=== PATIENT | male | born 1985 | race Hispanic/Latino ===

== ENCOUNTER 2016-07-29 12:35 | Emergency (ER) | payer SELFPAY ==
[2016-07-29 13:22] VITALS: BMI 25.8
[2016-07-29 13:26] VITALS: TEMP 98.3; O2SAT 99
[2016-07-29] MEDS ORDERED: Sodium Chloride 0.9% 500 ML IV STA (13:58)
--- NOTE | 2016-07-29 14:02 | ED PDOC ---
Arrival/HPI - General Chief Complaint: Dizziness/Lightheaded Time Seen by Provider: 07/29/16 13:58 Historian: Patient - History of Present Illness Narrative History of Present Illness (Text): 07/29/16 13:58 A 30 year old male presents to the emergency department complaining of dizziness and near syncope since yesterday. Patient reports feeling faint and experiencing a spinning sensation. He states his symptoms worsened today causing him to come in for further evaluation. Patient denies any fever, chills , nausea, vomiting, abdominal pain, chest pain, shortness of breath, headache or any other complaints. Patient reports he was on diet for 1 year and lost over 100 pounds. PMD: None Time/Duration: Other (Yesterday) Symptom Course: Worsening (Today) Quality: Other Context: Home Associated Symptoms (Text): 07/29/16 15:23 Patient was at his son's birthday green party yesterday and began to feel dizzy and lightheaded and near syncopal. He denies chest pain palpitations or dyspnea. No headache. No focal weakness. No numbness tingling or paresthesias. No difficulty with ADLs. No abdominal pain nausea or vomiting. Patient has lost approximately 100 pounds over the last year while dieting. He has only eaten some oatmeal and coffee since yesterday. Past Medical History - Provider Review Nursing Documentation Reviewed: Yes - Infectious Disease Hx of Infectious Diseases: None - Tetanus Immunization Tetanus Immunization: Unknown - Cardiac Hx Cardiac Disorders: Yes - Pulmonary Hx Asthma: Yes - HEENT Hx HEENT Disorder: No - Renal Hx Renal Disorder: No Hx Kidney Stones: Yes - Gastrointestinal Other/Comment: GALLSTONES - Psychiatric Hx Depression: No Hx Emotional Abuse: No Hx Physical Abuse: No Hx Substance Use: No - Past Surgical History Past Surgical History: No Previous - Anesthesia Hx Anesthesia: No - Suicidal Assessment Feels Threatened In Home Enviroment: No Family/Social History - Physician Review Nursing Documentation Reviewed: Yes Family/Social History: No Known Family HX Smoking Status: Light Smoker < 10 Cigarettes Daily Hx Alcohol Use: Yes Frequency of alcohol use: Socially Hx Substance Use: No Hx Substance Use Treatment: No Allergies/Home Meds Allergies/Adverse Reactions: Allergies No Known Allergies Allergy (Verified 07/29/16 13:22) Home Medications: Home Meds Medication Instructions Recorded Confirmed Loratadine/Pseudoephedrine 1 each PO DAILY 07/29/16 07/29/16 [Claritin-D 24 Hour Tablet] Review of Systems - Physician Review All systems were reviewed & negative as marked: Yes - Review of Systems Constitutional: absent: Fatigue, Fevers, Night Sweats Respiratory: absent: SOB, Wheezing Cardiovascular: Other (Near-syncope). absent: Chest Pain, Palpitations, Syncope Gastrointestinal: absent: Abdominal Pain, Nausea, Vomiting Neurological: Dizziness. absent: Headache, Focal Weakness, Gait Changes, Speech Changes, Facial Droop, Disequilibrium, Seizure Physical Exam Vital Signs Reviewed: Yes Vital Signs Temp Pulse Resp BP Pulse Ox 07/29/16 15:00 86 18 121/71 99 07/29/16 13:25 98.3 F 91 H 17 122/75 99 Temperature: Afebrile Blood Pressure: Normal Pulse: Regular Respiratory Rate: Normal Appearance: Positive for: Well-Appearing, Non-Toxic, Comfortable Pain Distress: None Mental Status: Positive for: Alert and Oriented X 3 - Systems Exam Head: Present: Atraumatic, Normocephalic Pupils: Present: PERRL Extroacular Muscles: Present: EOMI Conjunctiva: Present: Normal Ears: Present: NORMAL TM, Normal Canal. No: Erythema Mouth: Present: Moist Mucous Membranes Pharnyx: No: ERYTHEMA, EXUDATE, TONSILS ENLARGED Neck: Present: Normal Range of Motion Respiratory/Chest: Present: Clear to Auscultation, Good Air Exchange. No: Respiratory Distress, Accessory Muscle Use Cardiovascular: Present: Regular Rate and Rhythm, Normal S1, S2. No: Murmurs Abdomen: Present: Normal Bowel Sounds. No: Tenderness, Distention, Peritoneal Signs Back: Present: Normal Inspection Upper Extremity: Present: Normal Inspection. No: Cyanosis, Edema Lower Extremity: Present: Normal Inspection. No: Edema Neurological: Present: GCS=15, CN II-XII Intact, Speech Normal, Motor Func Grossly Intact, Normal Sensory Function, Normal Cerebellar Funct, Gait Normal Skin: Present: Warm, Dry, Normal Color. No: Rashes Psychiatric: Present: Alert, Oriented x 3, Normal Insight, Normal Concentration Medical Decision Making ED Course and Treatment: 07/29/16 13:58 Impression: A 30 year old male with dizziness and near-syncope. Plan: -- Head CT -- Chest xray -- EKG -- Labs -- Urinalysis -- IV fluids -- Reassess and disposition Progress Notes: 07/29/16 15:25 EKG shows normal sinus rhythm rate approximately 75 with an incomplete right bundle branch block and no old available for comparison and no acute ST or T- wave changes Report Date : 07/29/2016 17:09:49 PROCEDURE: CT HEAD WITHOUT CONTRAST. Dictator : Tresa Mcclelland MD IMPRESSION: No acute intracranial pathology identified. Mucosal thickening of the ethmoid air cells. Retention polyp/ cyst within the posterior right ethmoid air cells. Correlate clinically for sinusitis. 07/29/16 17:16 chest 2 views shows no infiltrate or effusion or cardiomegaly - Lab Interpretations Lab Results: 07/29/16 14:20 07/29/16 14:20 Lab Results 07/29/16 15:20: Urine Color Yellow, Urine Appearance Clear, Urine pH 7.0, Ur Specific [place] 1.015, Urine Protein Negative, Urine Glucose (UA) Negative, Urine Ketones Negative, Urine Blood Negative, Urine Nitrate Negative, Urine Bilirubin Negative, Urine Urobilinogen 0.2, Ur Leukocyte Esterase Negative, Urine Opiates Screen Negative, Urine Methadone Screen Negative, Ur Barbiturates Screen Negative, Ur Phencyclidine Scrn Negative, Ur Amphetamines Screen Negative , U Benzodiazepines Scrn Negative, U Oth Cocaine Metabols Negative, U Cannabinoids Screen Negative 07/29/16 14:20: WBC 7.9 D, RBC 4.56, Hgb 13.1 L, Hct 38.6 L, MCV 84.6, MCH 28.7 , MCHC 33.9, RDW 13.7, Plt Count 234, MPV 9.6, Gran % 68.0, Lymph % (Auto) 26.3 , [place] % (Auto) 3.7, Eos % (Auto) 1.7, Baso % (Auto) 0.3, Gran # 5.36, Lymph # 2.1, [place] # 0.3, Eos # 0.1, Baso # 0.02, Sodium 140, Potassium 4.0, Chloride 102 , Carbon Dioxide 28, Anion Gap 14, BUN 6 L, Creatinine 0.5, Est GFR ( Amer) > 60, Est GFR (Non-Af Amer) > 60, Random Glucose 88, Calcium 9.3, Magnesium 2.1, Total Bilirubin 0.5, AST 22, ALT 15, Alkaline Phosphatase 64, Lactate Dehydrogenase 327 L, Total Creatine Kinase 55, Troponin I < 0.01, Total Protein 7.0, Albumin 3.9, Globulin 3.0, Albumin/Globulin Ratio 1.3, Alcohol, Quantitative < 10 I have reviewed the lab results: Yes - RAD Interpretation Radiology Orders: 07/29/16 13:58 HEAD W/O CONTRAST [CT] Stat 07/29/16 13:59 CHEST TWO VIEWS (PA/LAT) [RAD] Stat CT scan of the head as read by the radiologist shows no acute findings Quality Worker: Radiologist - Medication Orders Current Medication Orders: Discontinued Medications Sodium Chloride (Sodium Chloride 0.9%) 500 mls @ 1,000 mls/hr IV .Q30M STA Stop: 07/29/16 14:27 Last Admin: 07/29/16 14:15 Dose: 1,000 MLS/HR eMAR Start Stop Document 07/29/16 14:15 JOL (Rec: 07/29/16 14:32 JOL [id number]) Intravenous Solution Start Date 07/29/16 Start Time 14:15 End Date 07/29/16 End time 14:45 Total Infusion Time 30 - Scribe Statement The provider has reviewed the documentation as recorded by the Greer Mclaughlin Provider Scribe Attestation: All medical record entries made by the Scribe were at my direction and personally dictated by me. I have reviewed the chart and agree that the record accurately reflects my personal performance of the history, physical exam, medical decision making, and the department course for this patient. I have also personally directed, reviewed, and agree with the discharge instructions and disposition. Disposition/Present on Arrival - Present on Arrival Any Indicators Present on Arrival: No History of DVT/PE: No History of Uncontrolled Diabetes: No Urinary Catheter: No History of Decub. Ulcer: No History Surgical Site Infection Following: None - Disposition Have Diagnosis and Disposition been Completed?: Yes Diagnosis: Near syncope, Weakness Disposition: HOME/ ROUTINE Disposition Time: 17:16 Patient Plan: Discharge Condition: GOOD Discharge Instructions (ExitCare): Weakness (ED), Near Syncope (ED) Additional Instructions: Follow-up with PMD. Increase fluids. Follow up in ER as needed. Forms: WORK NOTE
[2016-07-29 14:24] LABS: ADD MANUAL DIFF? NO
[2016-07-29 14:25] LABS: BASO # 0.02 K/mm3 (0.0-2.0); BASO % 0.3 % (0.0-3.0); EOS # 0.1 (0.0-0.7); EOS % 1.7 % (1.5-5.0); GRAN # 5.36 (1.4-6.5); HEMATOCRIT 38.6 % (42.0-52.0); LYMPH # 2.1 (1.2-3.4); LYMPH % 26.3 % (22.0-35.0); MEAN CELL VOLUME 84.6 fL (80.0-105.0); MEAN CORPUSCULAR HEMOGLOBIN 28.7 pg (25.0-35.0); MEAN CORPUSCULAR HGB CONC 33.9 g/dl (31.0-37.0); MEAN PLATELET VOLUME 9.6 fl (7.0-11.0); MONO # 0.3 (0.1-0.6); MONO % 3.7 % (1.0-6.0); PLATELET COUNT 234 10^3/uL (120.0-450.0); RED CELL DISTRIBUTION WIDTH 13.7 % (11.5-14.5); WHITE BLOOD COUNT 7.9 10^3/ul (4.5-11.0)
[2016-07-29 14:51] LABS: ALB/GLOB RATIO 1.3 (1.1-1.8); ALKALINE PHOSPHATASE 64 U/L (38-133); ALT/SGPT 15 U/L (7-56); AST/SGOT 22 U/L (15-59); BILIRUBIN,TOTAL 0.5 mg/dL (0.2-1.3); BLOOD UREA NITROGEN 6 mg/dL (7-21); CALCIUM 9.3 mg/dL (8.4-10.5); CARBON DIOXIDE 28 mmol/L (21-33); CHLORIDE 102 mmol/L (95-110); GFR AFRICAN-AMERICAN > 60; GLUCOSE,RANDOM 88 mg/dL (70-110); MAGNESIUM 2.1 mg/dL (1.7-2.2); SODIUM 140 mmol/L (132-148)
[2016-07-29 15:07] VITALS: RESP 18
[2016-07-29 15:14] LABS: TROPONIN I < 0.01 ng/mL
[2016-07-29 15:41] LABS: URINE BILIRUBIN NEGATIVE (NEGATIVE); URINE BLOOD NEGATIVE (NEGATIVE); URINE GLUCOSE (UA) NEGATIVE (NEGATIVE); URINE KETONE NEGATIVE (NEGATIVE); URINE LEUKOCYTE ESTERASE NEGATIVE Leu/uL (NEGATIVE); URINE PROTEIN NEGATIVE mg/dL (<30 mg/dL); URINE UROBILINOGEN 0.2 E.U./dL (<1 E.U./dL)
[2016-07-29 15:52] LABS: URINE APPEARANCE CLEAR (CLEAR); URINE COLOR YELLOW (YELLOW)
--- NOTE | 2016-07-29 17:11 | CT ---
PROCEDURE: CT HEAD WITHOUT CONTRAST. HISTORY: dizzy COMPARISON: None available. TECHNIQUE: Axial computed tomography images were obtained through the head/brain without intravenous contrast. Radiation dose: Total exam DLP = 774. 20 mGy-cm. This CT exam was performed using one or more of the following dose reduction techniques: Automated exposure control, adjustment of the mA and/or kV according to patient size, and/or use of iterative reconstruction technique. FINDINGS: HEMORRHAGE: No intracranial hemorrhage. BRAIN: No mass effect or edema. No atrophy or chronic microvascular ischemic changes.Please note that MRI with diffusion imaging is more sensitive in the detection of acute ischemic event. VENTRICLES: No hydrocephalus. CALVARIUM: Unremarkable. PARANASAL SINUSES: Mucosal thickening of the ethmoid air cells. Retention polyp/ cyst within the posterior right ethmoid air cells. The remainder of the visualized paranasal sinuses appear grossly unremarkable without air-fluid levels. MASTOID AIR CELLS: Unremarkable as visualized. No inflammatory changes. OTHER FINDINGS: None. IMPRESSION: No acute intracranial pathology identified. Mucosal thickening of the ethmoid air cells. Retention polyp/ cyst within the posterior right ethmoid air cells. Correlate clinically for sinusitis.
[2016-07-29 17:25] VITALS: BP 118/69; PULSE 79
--- NOTE | 2016-07-30 08:06 | RAD ---
HISTORY: dizzy COMPARISON: 07/07/2015 TECHNIQUE: Chest PA and lateral FINDINGS: LUNGS: No active pulmonary disease. PLEURA: No significant pleural effusion identified. No pneumothorax apparent. CARDIOVASCULAR: Normal. OSSEOUS STRUCTURES: No significant abnormalities. VISUALIZED UPPER ABDOMEN: Normal. OTHER FINDINGS: None. IMPRESSION: No active disease.
--- NOTE | 2016-07-30 11:24 | CARD ---
APPROVED REPORT EKG Measurement Heart [id number] <Conclusion> Normal sinus rhythm Left axis deviation Incomplete right bundle branch block Abnormal ECG
== END 2016-07-29 17:43 | disposition home or self-care (01) ==
LOC: ED 12:35
DX: R55 Syncope and collapse (principal); R53.1 Weakness
CPT/HCPCS: 70450; 71020; 80053; 81003; 82550; 83615; 83735; 84484; 85025; 93005; 99285; G0480; J7040

== ENCOUNTER 2016-08-12 19:05 | Emergency (ER) | payer BC ==
[2016-08-12 19:06] VITALS: BMI 25.8
[2016-08-12 19:20] VITALS: BP 128/75; PULSE 84; RESP 16; TEMP 97.7; O2SAT 98
[2016-08-12] MEDS ORDERED: TDAP Vaccine 0.5 mL Syr IM ONE (19:30)
--- NOTE | 2016-08-12 19:32 | ED PDOC ---
Arrival/HPI - General Chief Complaint: Abnormal Skin Integrity Time Seen by Provider: 08/12/16 19:28 Historian: Patient - History of Present Illness Narrative History of Present Illness (Text): 08/12/16 19:28 Patient reports sustaining a laceration to the distal tip of the left third finger when he was using a knife to open a lollipop for his daughter prior to arrival. Otherwise: (-) other injury, (-) numbness. Patient is R hand dominant. Tetanus not UTD Past Medical History - Provider Review Nursing Documentation Reviewed: Yes - Infectious Disease Hx of Infectious Diseases: None - Tetanus Immunization Tetanus Immunization: Unknown - Cardiac Hx Cardiac Disorders: No - Pulmonary Hx Respiratory Disorders: Yes Hx Asthma: Yes - Neurological Hx Neurological Disorder: No - HEENT Hx HEENT Disorder: No - Renal Hx Renal Disorder: No - Endocrine/Metabolic Hx Endocrine Disorders: No - Hematological/Oncological Hx Blood Disorders: No - Integumentary Hx Dermatological Disorder: No - Musculoskeletal/Rheumatological Hx Musculoskeletal Disorders: No - Gastrointestinal Hx Gastrointestinal Disorders: Yes Hx Gall Bladder Disease: Yes Other/Comment: GALLSTONES - Genitourinary/Gynecological Hx Genitourinary Disorders: No - Psychiatric Hx Psychophysiologic Disorder: No Hx Depression: No Hx Emotional Abuse: No Hx Physical Abuse: No Hx Substance Use: No - Past Surgical History Past Surgical History: No Previous - Anesthesia Hx Anesthesia: No - Suicidal Assessment Feels Threatened In Home Enviroment: No Family/Social History - Physician Review Nursing Documentation Reviewed: Yes Family/Social History: No Known Family HX Smoking Status: Light Smoker < 10 Cigarettes Daily Hx Alcohol Use: Yes Frequency of alcohol use: Socially Hx Substance Use: No Hx Substance Use Treatment: No Allergies/Home Meds Allergies/Adverse Reactions: Allergies No Known Allergies Allergy (Verified 08/12/16 19:17) Home Medications: Home Meds Medication Instructions Recorded Confirmed Loratadine/Pseudoephedrine 1 each PO DAILY 07/29/16 08/12/16 [Claritin-D 24 Hour Tablet] Review of Systems - Review of Systems Constitutional: Normal. absent: Fatigue, Weight Change, Fevers Musculoskeletal: Normal. absent: Arthralgias, Back Pain, Neck Pain Skin: Normal, Laceration. absent: Rash, Pruritis, Skin Lesions Physical Exam - Physical Exam Narrative Physical Exam (Text): 08/12/16 19:29 GENERAL APPEARANCE: Patient is awake, alert, oriented x 3, in mild painful distress. SKIN: Warm, (-) rash, (-) lesions. UPPER EXTREMITY: (+) Superficial 1 cm laceration to the distal tip of the left third digit, (-) tenderness, (-) swelling, (-) ecchymosis; (-) crepitus, (-) deformity. Tendon function intact. (-) distal neurovascular deficit. 2 point discrimination intact. Remainder of hand, digits and wrist: (-) injury. Vital Signs Temp Pulse Resp BP Pulse Ox 08/12/16 19:17 97.7 F 84 16 128/75 98 Medical Decision Making ED Course and Treatment: 08/12/16 19:30 30 yo M sustained lac to the L 3rd digit. The wound is left third digit. The wound was copiously irrigated with normal saline. The wound was prepped and draped in the normal sterile fashion. The wound was explored for foreign bodies and none were found. The edges were reapproximated using Dermabond by PA. Bleeding was well controlled and the patient tolerated the procedure well. Based on history and exam, plan will be for outpatient follow-up. Patient states he fully agrees with and understands discharge instructions. States that he agrees with the plan and disposition. Verbalized and repeated discharge instructions and plan. I have given the patient opportunity to ask any additional questions. Follow up with primary care physician in 1-2 days without fail. Return to the emergency room at any time for any new or worsening symptoms. - PA / CHANGE NUMBER OPERATOR / Resident Statement MD/DO has reviewed & agrees with the documentation as recorded. Disposition/Present on Arrival - Present on Arrival Any Indicators Present on Arrival: No History of DVT/PE: No History of Uncontrolled Diabetes: No Urinary Catheter: No History of Decub. Ulcer: No History Surgical Site Infection Following: None - Disposition Have Diagnosis and Disposition been Completed?: Yes Diagnosis: Finger laceration Disposition: HOME/ ROUTINE Disposition Time: 19:33 Patient Plan: Discharge Condition: GOOD Discharge Instructions (ExitCare): Laceration (ED) Print Language: FAROESE Additional Instructions: Thank you for letting us take care of you today. You were treated for finger laceration. The emergency medical care you received today was directed at your acute symptoms. It may take several days for your symptoms to resolve. Return to the Emergency Department if your symptoms worsen, do not improve, or if you have any other problems. Please contact your doctor in 2 days for re-evaluation and follow up. Bring any paperwork you were given at discharge with you along with any medications you are taking to your follow up visit. Our treatment cannot replace ongoing medical care by a primary care provider (PCP) outside of the emergency department. [facility]. Referrals: [facility] Profile Req, [Primary Care Provider] - Follow up with primary Forms: WORK NOTE
== END 2016-08-12 19:44 | disposition home or self-care (01) ==
LOC: ED 19:05
DX: S61.213A Laceration without foreign body of left middle finger without damage to nail, initial encounter (principal); W26.0XXA Contact with knife, initial encounter; Y92.89 Other specified places as the place of occurrence of the external cause; Z23 Encounter for immunization

== ENCOUNTER 2016-08-19 13:51 | Emergency (ER) | payer BC ==
[2016-08-19 13:55] VITALS: BMI 24.3
[2016-08-19 14:03] VITALS: RESP 18
--- NOTE | 2016-08-19 14:59 | RAD ---
HISTORY: cp COMPARISON: 07/29/2016 FINDINGS: LUNGS: No active pulmonary disease. PLEURA: No significant pleural effusion identified, no pneumothorax apparent. CARDIOVASCULAR: Normal. OSSEOUS STRUCTURES: No significant abnormalities. VISUALIZED UPPER ABDOMEN: Normal. OTHER FINDINGS: None. IMPRESSION: No active disease.
[2016-08-19 15:03] LABS: ADD MANUAL DIFF? NO
--- NOTE | 2016-08-19 15:03 | ED PDOC ---
Arrival/HPI - General Chief Complaint: Chest Pain Time Seen by Provider: 08/19/16 14:26 Historian: Patient - History of Present Illness Narrative History of Present Illness (Text): 08/19/16 15:06 A 30 year old male presents to the emergency department complaining of right sided chest pain since this morning. Patient reports a cough and shortness of breath and worsening pain with cough, direct palpation or movement. Patient notes never had these symptoms in the past and felt anxious. Patient is a pack a day smoker and social drinker. Denies any other complaints at this time. Time/Duration: Other (morning) Symptom Onset: Sudden Symptom Course: Unchanged Activities at Onset: Rest Context: Home Associated Symptoms (Text): cough and shortness of breath 08/19/16 15:26 This morning while at work patient developed a cough shortness of breath and right-sided chest pain which is made worse by deep breathing and palpation. He became very anxious and nervous and came to the emergency department. No trauma. No nausea or vomiting. No diaphoresis. No dizziness. Past Medical History - Provider Review Nursing Documentation Reviewed: Yes - Infectious Disease Hx of Infectious Diseases: None - Tetanus Immunization Tetanus Immunization: Unknown - Cardiac Hx Cardiac Disorders: No - Pulmonary Hx Respiratory Disorders: Yes Hx Asthma: Yes - Neurological Hx Neurological Disorder: No - HEENT Hx HEENT Disorder: No - Renal Hx Renal Disorder: No - Endocrine/Metabolic Hx Endocrine Disorders: No - Hematological/Oncological Hx Blood Disorders: No - Integumentary Hx Dermatological Disorder: No - Musculoskeletal/Rheumatological Hx Musculoskeletal Disorders: No - Gastrointestinal Hx Gastrointestinal Disorders: Yes Hx Gall Bladder Disease: Yes Other/Comment: GALLSTONES - Genitourinary/Gynecological Hx Genitourinary Disorders: No - Psychiatric Hx Psychophysiologic Disorder: No Hx Depression: No Hx Emotional Abuse: No Hx Physical Abuse: No Hx Substance Use: No - Past Surgical History Past Surgical History: No Previous - Anesthesia Hx Anesthesia: No - Suicidal Assessment Feels Threatened In Home Enviroment: No Family/Social History - Physician Review Nursing Documentation Reviewed: Yes Family/Social History: No Known Family HX Smoking Status: Heavy Smoker > 10 Cigarettes Daily Hx Alcohol Use: Yes Frequency of alcohol use: Socially Hx Substance Use: No Hx Substance Use Treatment: No Allergies/Home Meds Allergies/Adverse Reactions: Allergies No Known Allergies Allergy (Verified 08/19/16 14:03) Review of Systems - Physician Review All systems were reviewed & negative as marked: Yes - Review of Systems Constitutional: Normal Respiratory: SOB, Cough. absent: Sputum, Wheezing Cardiovascular: Chest Pain (R sided). absent: Palpitations, Syncope Gastrointestinal: absent: Abdominal Pain, Nausea, Vomiting Neurological: absent: Headache, Dizziness, Focal Weakness Physical Exam Vital Signs Reviewed: Yes Vital Signs Temp Pulse Resp BP Pulse Ox 08/19/16 14:00 98 F 76 18 127/84 96 Temperature: Afebrile Blood Pressure: Normal Pulse: Regular Respiratory Rate: Normal Appearance: Positive for: Well-Appearing, Non-Toxic, Comfortable Pain Distress: None Mental Status: Positive for: Alert and Oriented X 3 - Systems Exam Head: Present: Atraumatic, Normocephalic Pupils: Present: PERRL Extroacular Muscles: Present: EOMI Conjunctiva: Present: Normal Mouth: Present: Moist Mucous Membranes Pharnyx: No: ERYTHEMA, EXUDATE, TONSILS ENLARGED Neck: Present: Normal Range of Motion Respiratory/Chest: Present: Clear to Auscultation, Good Air Exchange, Tender to Palpation, Other (tender to R anterior chest). No: Accessory Muscle Use Cardiovascular: Present: Regular Rate and Rhythm, Normal S1, S2. No: Murmurs Abdomen: Present: Normal Bowel Sounds. No: Tenderness, Distention, Peritoneal Signs, Rebound, Guarding Back: Present: Normal Inspection Upper Extremity: Present: Normal Inspection. No: Cyanosis, Edema Lower Extremity: Present: Normal Inspection. No: Edema, CALF TENDERNESS Neurological: Present: GCS=15, CN II-XII Intact, Speech Normal. No: Motor Func Grossly Intact Skin: Present: Warm, Dry. No: Rashes, Other (crepitus skin changes) Psychiatric: Present: Alert, Oriented x 3, Normal Insight, Normal Concentration Medical Decision Making ED Course and Treatment: 08/19/16 15:00 Impression: A 30 year old male with right sided chest pain. Differential Diagnosis included but are not limited to: Plan: -- EKG -- chest xray -- labs -- Urinalysis -- Toradol -- Reassess and disposition Prior Visits: Notes and results from previous visits were reviewed. Patient last reported to emergency department on 08/12/16 for evaluation of laceration to the distal tip of left third finger. Patient advised outpatient follow up and discharged. Progress Notes: chest xray: Creator : Delmer Lovell MD 08/19/2016 15:02 IMPRESSION: No active disease. 08/19/16 15:28 EKG shows normal sinus rhythm rate of 75 with a right bundle-branch block similar to EKG of 07/29/2016 08/19/16 16:22 Symptoms have improved - Lab Interpretations Lab Results: 08/19/16 14:50 08/19/16 14:50 Lab Results 08/19/16 14:50: Sodium 138, Potassium 3.9, Chloride 102, Carbon Dioxide 29, Anion Gap 11, BUN 9, Creatinine 0.5, Est GFR ( Amer) > 60, Est GFR (Non- Af Amer) > 60, Random Glucose 89, Calcium 9.3, Total Bilirubin 0.6, AST 22, ALT 18, Alkaline Phosphatase 56, Lactate Dehydrogenase 332 L, Total Creatine Kinase 79, Troponin I < 0.01, Total Protein 6.8, Albumin 3.8, Globulin 3.0, Albumin/ Globulin Ratio 1.3 08/19/16 14:50: PT 11.1, INR 1.03, APTT 31.1 H, D-Dimer, Quantitative < 0.19 08/19/16 14:50: WBC 5.6 D, RBC 4.60, Hgb 13.4 L, Hct 38.7 L, MCV 84.1, MCH 29.1 , MCHC 34.6, RDW 13.6, Plt Count 182, MPV 9.1, Gran % 54.6, Lymph % (Auto) 35.0 , [place] % (Auto) 6.1 H, Eos % (Auto) 3.2, Baso % (Auto) 1.1, Gran # 3.03, Lymph # 1.9, [place] # 0.3, Eos # 0.2, Baso # 0.06 I have reviewed the lab results: Yes - RAD Interpretation Radiology Orders: 08/19/16 14:32 CHEST PORTABLE [RAD] Stat X-ray chest 1 view shows no infiltrate or effusion cardiomegaly or pneumothorax Hunter Guide: ED Physician - EKG Interpretation Interpreted by ED Physician: Yes Type: 12 lead EKG - Medication Orders Current Medication Orders: Discontinued Medications Ketorolac Tromethamine (Toradol) 30 mg IVP ONCE ONE Stop: 08/19/16 14:34 Last Admin: 08/19/16 14:56 Dose: 30 mg - Scribe Statement The provider has reviewed the documentation as recorded by the Greer Laureano Provider Greer Attestation: All medical record entries made by the Anyibhenri were at my direction and personally dictated by me. I have reviewed the chart and agree that the record accurately reflects my personal performance of the history, physical exam, medical decision making, and the department course for this patient. I have also personally directed, reviewed, and agree with the discharge instructions and disposition. Disposition/Present on Arrival - Present on Arrival Any Indicators Present on Arrival: No History of DVT/PE: No History of Uncontrolled Diabetes: No Urinary Catheter: No History of Decub. Ulcer: No History Surgical Site Infection Following: None - Disposition Have Diagnosis and Disposition been Completed?: Yes Diagnosis: Pleuritic chest pain Disposition: HOME/ ROUTINE Disposition Time: 16:22 Patient Plan: Discharge Condition: IMPROVED Discharge Instructions (ExitCare): Chest Pain (ED), Pleurisy (ED) Additional Instructions: Follow-up with your PMD. Follow-up in the ER as needed. Prescriptions: Naproxen [Naprosyn] 500 mg PO BID #14 tab Referrals: PCP,NO [Primary Care Provider] - Follow up with primary Sarita Munoz MD [Staff Provider] - Follow up with primary Forms: WORK NOTE
[2016-08-19 15:06] LABS: BASO # 0.06 K/mm3 (0.0-2.0); BASO % 1.1 % (0.0-3.0); EOS # 0.2 (0.0-0.7); EOS % 3.2 % (1.5-5.0); GRAN # 3.03 (1.4-6.5); GRAN % 54.6 % (50.0-68.0); HEMATOCRIT 38.7 % (42.0-52.0); LYMPH # 1.9 (1.2-3.4); MEAN CELL VOLUME 84.1 fL (80.0-105.0); MEAN CORPUSCULAR HEMOGLOBIN 29.1 pg (25.0-35.0); MEAN CORPUSCULAR HGB CONC 34.6 g/dl (31.0-37.0); MEAN PLATELET VOLUME 9.1 fl (7.0-11.0); MONO # 0.3 (0.1-0.6); MONO % 6.1 % (1.0-6.0); PLATELET COUNT 182 10^3/uL (120.0-450.0); RED CELL DISTRIBUTION WIDTH 13.6 % (11.5-14.5); WHITE BLOOD COUNT 5.6 10^3/ul (4.5-11.0)
[2016-08-19 15:16] LABS: ALB/GLOB RATIO 1.3 (1.1-1.8); ALKALINE PHOSPHATASE 56 U/L (38-133); ALT/SGPT 18 U/L (7-56); AST/SGOT 22 U/L (15-59); BILIRUBIN,TOTAL 0.6 mg/dL (0.2-1.3); BLOOD UREA NITROGEN 9 mg/dL (7-21); CALCIUM 9.3 mg/dL (8.4-10.5); CARBON DIOXIDE 29 mmol/L (21-33); CHLORIDE 102 mmol/L (98-107); GFR AFRICAN-AMERICAN > 60; GLUCOSE,RANDOM 89 mg/dL (70-110); POTASSIUM 3.9 mmol/L (3.6-5.0); SODIUM 138 mmol/L (132-148); TOTAL PROTEIN 6.8 g/dL (5.8-8.3)
[2016-08-19 15:23] LABS: INR 1.03 (0.93-1.08); PARTIAL THROMBOPLASTIN TIME 31.1 Seconds (23.7-30.8)
[2016-08-19 15:35] LABS: TROPONIN I < 0.01 ng/mL
[2016-08-19 16:19] LABS: D DIMER < 0.19 mg/L FEU (0-0.50)
[2016-08-19 16:54] VITALS: BP 137/84; PULSE 68; TEMP 97.8; O2SAT 98
--- NOTE | 2016-08-20 02:05 | CARD ---
APPROVED REPORT EKG Measurement Heart [id number] 132P50 [id number] <Conclusion> Normal sinus rhythm Incomplete right bundle branch block Borderline ECG
== END 2016-08-19 16:58 | disposition home or self-care (01) ==
LOC: ED 13:51
DX: R07.81 Pleurodynia (principal)
CPT/HCPCS: 71010; 80053; 82550; 83615; 84484; 85025; 85378; 85610; 85730; 93005; 96374; 99283; J1885

== ENCOUNTER 2016-11-30 16:33 | Observation (INO) | payer MEDICAID, OTHER ==
[2016-11-30 16:34] VITALS: BMI 24.3
[2016-11-30] MEDS ORDERED: diaZEpam 10 mg/2 ml Inj IVP ONE (17:03)
[2016-11-30] MEDS ORDERED: Sodium Chloride 0.9% 1,000 ML IV STA (17:03)
--- NOTE | 2016-11-30 17:12 | ED PDOC ---
"Arrival/HPI - General Chief Complaint: Back Pain Time Seen by Provider: 11/30/16 16:36 Historian: Patient - History of Present Illness Narrative History of Present Illness (Text): 11/30/16 17:10 31 y/o male, no significant pmh, nkda, c/o suddent onset of the left flank/ abdomen pain x 1 day with no fall or trauma. pt. stated that he woke up this morning with sharp lt. flank back pain, non-radiating, associated with the movement, no urinary symptoms, no fever or chills, no hematuria, no night sweat , no rash, no other medical or psychological complaints. Pt. has been loosing 130 pounds for the past 6 months which he stated that's weight loss plan he had? Past Medical History - Provider Review Nursing Documentation Reviewed: Yes - Infectious Disease Hx of Infectious Diseases: None - Tetanus Immunization Tetanus Immunization: Unknown - Cardiac Hx Cardiac Disorders: No - Pulmonary Hx Respiratory Disorders: Yes Hx Asthma: Yes - Neurological Hx Neurological Disorder: No - HEENT Hx HEENT Disorder: No - Renal Hx Renal Disorder: No - Endocrine/Metabolic Hx Endocrine Disorders: No - Hematological/Oncological Hx Blood Disorders: No - Integumentary Hx Dermatological Disorder: No - Musculoskeletal/Rheumatological Hx Musculoskeletal Disorders: No - Gastrointestinal Hx Gastrointestinal Disorders: Yes Hx Gall Bladder Disease: Yes Other/Comment: GALLSTONES - Genitourinary/Gynecological Hx Genitourinary Disorders: No - Psychiatric Hx Psychophysiologic Disorder: No Hx Depression: No Hx Emotional Abuse: No Hx Physical Abuse: No Hx Substance Use: No - Past Surgical History Past Surgical History: No Previous - Anesthesia Hx Anesthesia: No - Suicidal Assessment Feels Threatened In Home Enviroment: No Family/Social History - Physician Review Nursing Documentation Reviewed: Yes Family/Social History: Unknown Family HX Smoking Status: Light Smoker < 10 Cigarettes Daily Hx Alcohol Use: Yes Frequency of alcohol use: Socially Hx Substance Use: No Hx Substance Use Treatment: No Allergies/Home Meds Allergies/Adverse Reactions: Allergies No Known Allergies Allergy (Verified 11/30/16 16:51) Review of Systems - Review of Systems Constitutional: absent: Fatigue, Fevers Eyes: absent: Vision Changes ENT: absent: Hearing Changes Respiratory: absent: SOB, Cough Cardiovascular: absent: Chest Pain Gastrointestinal: absent: Abdominal Pain, Nausea, Vomiting Musculoskeletal: Back Pain Skin: absent: Rash, Pruritis Neurological: absent: Headache, Dizziness Psychiatric: absent: Anxiety, Depression Physical Exam Vital Signs Reviewed: Yes Vital Signs Temp Pulse Resp BP Pulse Ox 11/30/16 22:59 97.9 F 62 18 123/74 100 11/30/16 21:05 98 F 55 L 20 128/68 100 11/30/16 19:10 56 L 19 122/78 100 11/30/16 18:29 98 F 77 19 108/71 99 11/30/16 16:47 98.2 F 77 16 117/76 98 Temperature: Afebrile Blood Pressure: Normal Pulse: Regular Respiratory Rate: Normal Appearance: Positive for: Well-Appearing, Non-Toxic Pain Distress: Severe Mental Status: Positive for: Alert and Oriented X 3 - Systems Exam Head: Present: Atraumatic, Normocephalic Pupils: Present: PERRL Extroacular Muscles: Present: EOMI Conjunctiva: Present: Normal Mouth: Present: Moist Mucous Membranes Neck: Present: Normal Range of Motion Respiratory/Chest: Present: Clear to Auscultation, Good Air Exchange. No: Respiratory Distress, Accessory Muscle Use Cardiovascular: Present: Regular Rate and Rhythm, Normal S1, S2. No: Murmurs Abdomen: Present: Tenderness (Lt. sided), Normal Bowel Sounds. No: Distention, Peritoneal Signs, Rebound, Guarding Back: Present: Normal Inspection, CVA Tenderness (left). No: Midline Tenderness , Paraspinal Tenderness, Pain with Leg Raise Upper Extremity: Present: Normal Inspection. No: Cyanosis, Edema Lower Extremity: Present: Normal Inspection. No: Edema Neurological: Present: GCS=15, Speech Normal, Motor Func Grossly Intact, Gait Normal, Memory Normal Skin: Present: Warm, Dry, Normal Color. No: Rashes Psychiatric: Present: Alert, Oriented x 3, Normal Insight, Normal Concentration Medical Decision Making ED Course and Treatment: 11/30/16 17:11 -labs/ua -CT abdomen/pelvis -IVF/toradol/valiuim 11/30/16 20:20 -IV morphine ordered as he still has pain. -CT abdomen and pelvis without contrast result reviewed and discussed with Dr. Sanabria, Dr. Sanabria stated that there is no stone but suggest po and IV contrast with repeat study as this is inconclusive test at this point. I offered initially to repeat but the patient refused and waiting for several hours but now agreed to do the test. Hepatosplenomegaly. Cholelithiasis. No definitive radiographic evidence of obstructing nephrolithiasis. The urinary bladder is incompletely distended which may in part account for thick- walled appearance. Muscular hypertrophy may contribute. Rule out cystitis. Evaluation of the bowel is quite limited. The appendix is not seen with certainty. Questionable diverticulosis involving the sigmoid colon the. Evaluation for acute diverticulitis is limited predominately due to a paucity of intraperitoneal/ retroperitoneal fat. . There appears to be a small amount of free fluid in the right aspect of the pelvis abnormal in a male patient -Labs are non-significant -UA show +UTI, IV rocephine ordered. -CT abdomen and pelvis with contrasts ordered. 12/01/16 00:34 -CT abdomen and pelvis with po and iv contrast: Although study is performed with enteric contrast, it has not reached the area of concern in the distal small bowel and colon. Cannot exclude inflammation or abnormality in this location. Again, there is mottled material with air within the pelvis that may be within bowel, but this cannot be confirmed. There is ascites with periportal fluid which is abnormal and indicates an underlying acute abnormality. Hepatosplenomegaly. Cholelithiasis. Additional details/findings as above. Delayed imaging of bowel remaining evaluation. Correlate clinically. Followup as warranted. -Pt. still having pain, CT abdomen and pelvis is inconclusive, magnesium citrate ordered. -Pt. will need to be observe overnight as the lt. flank pain/abdominal pain is inconclusive. -Night hospitalist henry, medical assistant instructor is aware of the case. 12/01/16 00:56 -I spoke to Dr. Beth about the case, discussed with attending and agreed on the overnight admission. - Lab Interpretations Lab Results: 11/30/16 17:30 11/30/16 17:30 Lab Results 11/30/16 19:00: Urine Color Yellow, Urine Appearance Clear, Urine pH 6.0, Ur Specific [place] >= 1.030, Urine Protein Trace H, Urine Glucose (UA) Negative, Urine Ketones Negative, Urine Blood Negative, Urine Nitrate Negative, Urine Bilirubin Negative, Urine Urobilinogen 1.0 H, Ur Leukocyte Esterase Negative, Urine RBC TEST NOT PERFORMED, Urine WBC 5 - 10, Ur Epithelial Cells 3 - 4, Amorphous Sediment Trace 11/30/16 17:30: Lipase 132 11/30/16 17:30: Sodium 143, Potassium 4.1, Chloride 105, Carbon Dioxide 26, Anion Gap 16, BUN 11, Creatinine 0.5, Est GFR ( Amer) > 60, Est GFR (Non- Af Amer) > 60, Random Glucose 91, Calcium 9.4, Total Bilirubin 0.5, AST 28, ALT 18, Alkaline Phosphatase 58, Total Protein 7.3, Albumin 4.5, Globulin 2.8, Albumin/Globulin Ratio 1.6 11/30/16 17:30: WBC 7.0 D, RBC 4.84, Hgb 14.3, Hct 41.8 L, MCV 86.4, MCH 29.5, MCHC 34.2, RDW 13.6, Plt Count 190, MPV 9.9, Gran % 42.4 L, Lymph % (Auto) 42.2 H, [place] % (Auto) 7.0 H, Eos % (Auto) 7.8 H, Baso % (Auto) 0.6, Gran # 2.98, Lymph # 3.0, [place] # 0.5, Eos # 0.6, Baso # 0.04 I have reviewed the lab results: Yes Interpretation: Abnormal lab values (+UTI) - RAD Interpretation Radiology Orders: 11/30/16 17:03 ABDOMEN & PELVIS [ABD & PELVIS W/O PO OR IV CONT] [CT] Stat 11/30/16 20:20 ABDOMEN & PELVIS [ABD PELVIS PO & IV CONTRAST] [CT] Stat 12/01/16 00:26 CHEST PORTABLE [RAD] Stat Initial CT abdomen and pelvis without contrast: PROCEDURE: CT abdomen pelvis HISTORY: Dated 11/30/2016 left flank pain x 1 day COMPARISON: Comparison made with prior CT scan abdomen pelvis 09/23/2013. TECHNIQUE: Contiguous axial images of the abdomen and pelvis. Oral contrast was administered. No IV contrast given. Coronal and Sagittal reformats generated. Radiation dose: Total exam DLP = 448.99 mGy-cm. This CT exam was performed using one or more of the following dose reduction techniques: Automated exposure control, adjustment of the mA and/or kV according to patient size, and/or use of iterative reconstruction technique. FINDINGS: LOWER THORAX: Lung bases clear without infiltrate effusion or basilar pneumothorax. Heart size within range of normal. No significant pericardial effusion. Tiny hiatal hernia. LIVER: Liver is mildly enlarged measuring nearly 21 cm in CC dimension. No obvious hepatic mass or collection seen on this noncontrast study. GALLBLADDER AND BILE DUCTS: Gallbladder appears contracted. Intraluminal gallbladder calculi again noted. PANCREAS: Pancreas is poorly delineated however no obvious large mass or collection seen. No pancreatic on ductal dilatation or calcifications. SPLEEN: Spleen is mildly enlarged measuring approximate 13.6 cm in AP dimension. No obvious splenic mass collection or calcification. ADRENALS: Right adrenal gland appears unremarkable. Left adrenal gland is slightly nodular in appearance KIDNEYS AND URETERS: Kidneys demonstrate relatively symmetric size. No evidence of nephrolithiasis. No evidence of hydronephrosis. No obvious renal mass or collection seen. BLADDER: Urinary bladder is incompletely distended which may in part account for thick- walled appearance. Muscular hypertrophy may contribute. The possibility of a cystitis not excluded. REPRODUCTIVE: Prostate gland measures approximately 4.1 cm in transverse dimension. Prostatic calcifications present. APPENDIX: Appendix is not seen with certainty on this study BOWEL: Evaluation of the bowel is limited due to the lack of oral contrast material. Stomach is distended with food debris some liquid and air. Visualized loops of small bowel exhibit normal contour and caliber. No evidence of acute mechanical small bowel obstruction. There is a large amount of stool within the cecum at ascending and transverse colon consistent with fecal retention/ constipation. Lesser amount of stool seen throughout the descending colon of the contents are somewhat hyperdense. Questionable diverticulosis along the sigmoid and distal descending colon. Due to relative paucity of intraperitoneal fat evaluation for acute diverticulitis is limited. Clinical correlation with history physical exam and laboratory values recommended. PERITONEUM: No definitive gross free intraperitoneal air. Bubbles of air seen within the anterior lower abdomen felt to be within bowel however could again clinical correlation recommended. There appears to be a small amount of fluid within the right aspect of the pelvis which is abnormal for a male patient LYMPH NODES: Evaluation for adenopathy is somewhat limited due to with the lack of oral and intravenous contrast material as well as a paucity of intraperitoneal and retroperitoneal fat. VASCULATUR THE THE THE UNREMARKABLE. NO AORTIC ANEURYSM.: BONES: No re- demonstrated is minor chronic anterior stature loss of the T11 segment. Remaining vertebral bodies otherwise exhibit relatively normal stature of. Minor multilevel degenerative spondylosis. OTHER FINDINGS: None. IMPRESSION: Hepatosplenomegaly. Cholelithiasis. No definitive radiographic evidence of obstructing nephrolithiasis. The urinary bladder is incompletely distended which may in part account for thick- walled appearance. Muscular hypertrophy may contribute. Rule out cystitis. Evaluation of the bowel is quite limited. The appendix is not seen with certainty. Questionable diverticulosis involving the sigmoid colon the. Evaluation for acute diverticulitis is limited predominately due to a paucity of intraperitoneal/ retroperitoneal fat. . There appears to be a small amount of free fluid in the right aspect of the pelvis abnormal in a male patient Consider followup CT scan with oral and intravenous contrast material for further evaluation radiology note that these findings were discussed with emergency room DANIELLE rutledge throughout the caudate note at approximately 6:18 p.m. with written down and read back verification. CT Abdomen and pelvis with oral and IV contrast: FINDINGS: Liver measured at 21 cm. Subcentimeter hypoattenuating focus in the right lobe of the liver, too small to characterize. Splenomegaly. Periportal fluid. Cholelithiasis. The pancreas and adrenal glands demonstrate no acute abnormalities. The kidneys are symmetric with no evidence of hydronephrosis. Subcentimeter hypoattenuating focus in the upper pole of the right kidney, statistically representing cyst. The aorta is unremarkable. Evidence of minimal hiatal hernia. Enteric contrast visualized within the small bowel at the time of imaging, limiting evaluation distally. Retained fecal material in the colon. The appendix is not clearly identified on the current study. However, there does appear to be a normal caliber appendix on the RYAN PISANO | Final Radiology Report CONFIDENTIALITY STATEMENT This report is intended only for use by the referring physician, and only in accordance with law. If you received this in error, call [phone]. Page 2 of 2 study performed earlier the same day. Again, there is mottled material with air within the pelvis that may be within bowel, but this cannot be confirmed. Small amount of ascites. Mild loss of height of T11 again noted. Mild degenerative changes. IMPRESSION: Although study is performed with enteric contrast, it has not reached the area of concern in the distal small bowel and colon. Cannot exclude inflammation or abnormality in this location. Again, there is mottled material with air within the pelvis that may be within bowel, but this cannot be confirmed. There is ascites with periportal fluid which is abnormal and indicates an underlying acute abnormality. Hepatosplenomegaly. Cholelithiasis. Additional details/findings as above. Delayed imaging of bowel remaining evaluation. Correlate clinically. Followup as warranted. Thank you for allowing us to participate in the care of your patient. Dictated and Authenticated by: Belkis Mendoza MD 12/01/2016 12:18 AM Eastern Time ([place] & [place]) Chest x-ray: possible reactive airway disease Multimedia Programmer: Radiologist - Medication Orders Current Medication Orders: Discontinued Medications Acetaminophen (Tylenol 325mg Tab) 650 mg PO Q4 PRN PRN Reason: Pain, moderate (4-7) Diazepam (Valium) 5 mg IVP ONCE ONE PRN Reason: Protocol Stop: 11/30/16 17:04 Last Admin: 11/30/16 17:44 Dose: 5 mg Docusate Sodium (Colace) 100 mg PO DAILY JANKI Sodium Chloride (Sodium Chloride 0.9%) 1,000 mls @ 999 mls/hr IV .Q1H1M STA Stop: 11/30/16 18:03 Last Admin: 11/30/16 17:19 Dose: 999 mls/hr Ceftriaxone Sodium (Rocephin 1 Gram Ivpb) 1 gm in 100 mls @ 200 mls/hr IVPB STAT STA PRN Reason: Protocol Stop: 11/30/16 20:20 Last Admin: 11/30/16 20:27 Dose: 200 mls/hr Sodium Chloride (Sodium Chloride 0.9%) 1,000 mls @ 100 mls/hr IV .Q10H JANKI Last Admin: 12/01/16 04:27 Dose: 100 mls/hr Iohexol (Omnipaque 240 (50 Ml)) Confirm Administered Dose 50 ml .ROUTE .STK-MED ONE Stop: 11/30/16 20:37 Iohexol (Omnipaque 350 100 Ml) Confirm Administered Dose 350 mg .ROUTE .STK-MED ONE Stop: 11/30/16 21:53 Ketorolac Tromethamine (Toradol) 30 mg IVP STAT STA Stop: 11/30/16 17:04 Last Admin: 11/30/16 17:44 Dose: 30 mg Re-Assess: [facility] Pain Assessment Document 11/30/16 18:44 GMI (Rec: 11/30/16 18:53 GMI [place] [id number]) Pain Reassessment Is this a pain reassessment? Yes Sleep Is patient sleeping during reassessment? No Presence of Pain Presence of Pain Yes Magnesium Citrate (Citrate Of Mag) 300 ml PO ONCE ONE Stop: 12/01/16 00:27 Last Admin: 12/01/16 03:06 Dose: 300 ml Morphine Sulfate (Morphine) 4 mg IVP STAT STA Stop: 11/30/16 18:30 Last Admin: 11/30/16 18:48 Dose: 4 mg Re-Assess: [facility] Pain Assessment Document 11/30/16 19:48 GMI (Rec: 11/30/16 20:27 GMI [place] [id number]) Pain Reassessment Is this a pain reassessment? Yes Sleep Is patient sleeping during reassessment? No Presence of Pain Presence of Pain No Morphine Sulfate (Morphine) 2 mg IVP Q4H PRN PRN Reason: Pain, severe (8-10) Pantoprazole Sodium (Protonix Inj) 40 mg IVP DAILY JANKI Potassium Chloride (Potassium Chloride Oral Soln) 40 meq PO ONCE ONE Stop: 12/01/16 07:07 - PA / ASTRONAUTICAL ENGINEER / Resident Statement MD/DO has reviewed & agrees with the documentation as recorded. Disposition/Present on Arrival - Present on Arrival Any Indicators Present on Arrival: No History of DVT/PE: No History of Uncontrolled Diabetes: No Urinary Catheter: No History of Decub. Ulcer: No History Surgical Site Infection Following: None - Disposition Have Diagnosis and Disposition been Completed?: Yes Diagnosis: UTI (urinary tract infection), Abdominal pain, Flank pain Disposition: HOSPITALIZED Disposition Time: 17:12 Patient Plan: Observation Condition: STABLE"
[2016-11-30 18:00] LABS: ALB/GLOB RATIO 1.6 (1.1-1.8); ALKALINE PHOSPHATASE 58 U/L (38-133); ALT/SGPT 18 U/L (7-56); AST/SGOT 28 U/L (15-59); BILIRUBIN,TOTAL 0.5 mg/dL (0.2-1.3); BLOOD UREA NITROGEN 11 mg/dL (7-21); CALCIUM 9.4 mg/dL (8.4-10.5); CARBON DIOXIDE 26 mmol/L (21-33); CHLORIDE 105 mmol/L (98-107); GFR AFRICAN-AMERICAN > 60; GLUCOSE,RANDOM 91 mg/dL (70-110); POTASSIUM 4.1 mmol/L (3.6-5.0); SODIUM 143 mmol/L (132-148); TOTAL PROTEIN 7.3 g/dL (5.8-8.3)
[2016-11-30 18:05] LABS: BASO # 0.04 K/mm3 (0.0-2.0); BASO % 0.6 % (0.0-3.0); EOS # 0.6 (0.0-0.7); EOS % 7.8 % (1.5-5.0); GRAN # 2.98 (1.4-6.5); GRAN % 42.4 % (50.0-68.0); HEMATOCRIT 41.8 % (42.0-52.0); LYMPH % 42.2 % (22.0-35.0); MEAN CELL VOLUME 86.4 fl (80.0-105.0); MEAN CORPUSCULAR HEMOGLOBIN 29.5 pg (25.0-35.0); MEAN CORPUSCULAR HGB CONC 34.2 g/dl (31.0-37.0); MEAN PLATELET VOLUME 9.9 fl (7.0-11.0); MONO # 0.5 (0.1-0.6); RED CELL DISTRIBUTION WIDTH 13.6 % (11.5-14.5)
--- NOTE | 2016-11-30 18:23 | CT ---
PROCEDURE: CT abdomen pelvis HISTORY: Dated 11/30/2016 left flank pain x 1 day COMPARISON: Comparison made with prior CT scan abdomen pelvis 09/23/2013. TECHNIQUE: Contiguous axial images of the abdomen and pelvis. Oral contrast was administered. No IV contrast given. Coronal and Sagittal reformats generated. Radiation dose: Total exam DLP = 448.99 mGy-cm. This CT exam was performed using one or more of the following dose reduction techniques: Automated exposure control, adjustment of the mA and/or kV according to patient size, and/or use of iterative reconstruction technique. FINDINGS: LOWER THORAX: Lung bases clear without infiltrate effusion or basilar pneumothorax. Heart size within range of normal. No significant pericardial effusion. Tiny hiatal hernia. LIVER: Liver is mildly enlarged measuring nearly 21 cm in CC dimension. No obvious hepatic mass or collection seen on this noncontrast study. GALLBLADDER AND BILE DUCTS: Gallbladder appears contracted. Intraluminal gallbladder calculi again noted. PANCREAS: Pancreas is poorly delineated however no obvious large mass or collection seen. No pancreatic on ductal dilatation or calcifications. SPLEEN: Spleen is mildly enlarged measuring approximate 13.6 cm in AP dimension. No obvious splenic mass collection or calcification. ADRENALS: Right adrenal gland appears unremarkable. Left adrenal gland is slightly nodular in appearance KIDNEYS AND URETERS: Kidneys demonstrate relatively symmetric size. No evidence of nephrolithiasis. No evidence of hydronephrosis. No obvious renal mass or collection seen. BLADDER: Urinary bladder is incompletely distended which may in part account for thick-walled appearance. Muscular hypertrophy may contribute. The possibility of a cystitis not excluded. REPRODUCTIVE: Prostate gland measures approximately 4.1 cm in transverse dimension. Prostatic calcifications present. APPENDIX: Appendix is not seen with certainty on this study BOWEL: Evaluation of the bowel is limited due to the lack of oral contrast material. Stomach is distended with food debris some liquid and air. Visualized loops of small bowel exhibit normal contour and caliber. No evidence of acute mechanical small bowel obstruction. There is a large amount of stool within the cecum at ascending and transverse colon consistent with fecal retention/ constipation. Lesser amount of stool seen throughout the descending colon of the contents are somewhat hyperdense. Questionable diverticulosis along the sigmoid and distal descending colon. Due to relative paucity of intraperitoneal fat evaluation for acute diverticulitis is limited. Clinical correlation with history physical exam and laboratory values recommended. PERITONEUM: No definitive gross free intraperitoneal air. Bubbles of air seen within the anterior lower abdomen felt to be within bowel however could again clinical correlation recommended. There appears to be a small amount of fluid within the right aspect of the pelvis which is abnormal for a male patient LYMPH NODES: Evaluation for adenopathy is somewhat limited due to with the lack of oral and intravenous contrast material as well as a paucity of intraperitoneal and retroperitoneal fat. VASCULATUR THE THE THE UNREMARKABLE. NO AORTIC ANEURYSM.: BONES: No re- demonstrated is minor chronic anterior stature loss of the T11 segment. Remaining vertebral bodies otherwise exhibit relatively normal stature of. Minor multilevel degenerative spondylosis. OTHER FINDINGS: None. IMPRESSION: Hepatosplenomegaly. Cholelithiasis. No definitive radiographic evidence of obstructing nephrolithiasis. The urinary bladder is incompletely distended which may in part account for thick-walled appearance. Muscular hypertrophy may contribute. Rule out cystitis. Evaluation of the bowel is quite limited. The appendix is not seen with certainty. Questionable diverticulosis involving the sigmoid colon the. Evaluation for acute diverticulitis is limited predominately due to a paucity of intraperitoneal/ retroperitoneal fat. . There appears to be a small amount of free fluid in the right aspect of the pelvis abnormal in a male patient Consider followup CT scan with oral and intravenous contrast material for further evaluation radiology note that these findings were discussed with emergency room DANIELLE rutledge throughout the caudate note at approximately 6:18 p.m. with written down and read back verification.
[2016-11-30] MEDS ORDERED: Morphine 4 mg/ml ISec IVP STA (18:29)
[2016-11-30 19:31] LABS: URINE BILIRUBIN NEGATIVE (NEGATIVE); URINE BLOOD NEGATIVE (NEGATIVE); URINE GLUCOSE (UA) NEGATIVE (NEGATIVE); URINE KETONE NEGATIVE (NEGATIVE); URINE LEUKOCYTE ESTERASE NEGATIVE Leu/uL (NEGATIVE); URINE PROTEIN TRACE mg/dL (<30 mg/dL)
[2016-11-30 19:32] LABS: URINE APPEARANCE CLEAR (CLEAR); URINE COLOR YELLOW (YELLOW)
[2016-11-30 19:35] LABS: URINE AMORPHOUS SEDIMENT TRACE
[2016-11-30] MEDS ORDERED: cefTRIAXone 1 gm 1 GM/100 ML BAG IVPB STA (19:51)
[2016-11-30] MEDS ORDERED: Iohexol 240 (50 ml) ONE (20:36)
[2016-11-30] MEDS ORDERED: Iohexol 350 MG/100 ML VIAL ONE (21:52)
--- NOTE | 2016-12-01 00:19 | CT ---
EXAM: CT Abdomen and Pelvis With Intravenous Contrast CLINICAL HISTORY: 31 years old, male; Pain; Abdominal pain; Patient HX: Recommend by radiologist to repeat TECHNIQUE: Axial computed tomography images of the abdomen and pelvis with intravenous contrast. All CT scans at this facility use one or more dose reduction techniques, viz.: automated exposure control; ma/kV adjustment per patient size (including targeted exams where dose is matched to indication; i.e. head); or iterative reconstruction technique. Coronal and sagittal reformatted images were created and reviewed. CONTRAST: 96 mL of OMNIPAQUE 350 administered intravenously. COMPARISON: CT - ABD PELVIS W/O PO OR IV CONT 11/30/2016 5:19:09 PM FINDINGS: Liver measured at 21 cm. Subcentimeter hypoattenuating focus in the right lobe of the liver, too small to characterize. Splenomegaly. Periportal fluid. Cholelithiasis. The pancreas and adrenal glands demonstrate no acute abnormalities. The kidneys are symmetric with no evidence of hydronephrosis. Subcentimeter hypoattenuating focus in the upper pole of the right kidney, statistically representing cyst. The aorta is unremarkable. Evidence of minimal hiatal hernia. Enteric contrast visualized within the small bowel at the time of imaging, limiting evaluation distally. Retained fecal material in the colon. The appendix is not clearly identified on the current study. However, there does appear to be a normal caliber appendix on the study performed earlier the same day. Again, there is mottled material with air within the pelvis that may be within bowel, but this cannot be confirmed. Small amount of ascites. Mild loss of height of T11 again noted. Mild degenerative changes. IMPRESSION: Although study is performed with enteric contrast, it has not reached the area of concern in the distal small bowel and colon. Cannot exclude inflammation or abnormality in this location. Again, there is mottled material with air within the pelvis that may be within bowel, but this cannot be confirmed. There is ascites with periportal fluid which is abnormal and indicates an underlying acute abnormality. Hepatosplenomegaly. Cholelithiasis. Additional details/findings as above. Delayed imaging of bowel remaining evaluation. Correlate clinically. Followup as warranted.
[2016-12-01] MEDS ORDERED: Magnesium Citrate Oral SOL (300 ml) PO ONE (00:26)
[2016-12-01] MEDS ORDERED: Sodium Chloride 0.9% 1,000 ML IV SCH (03:30)
[2016-12-01] MEDS ORDERED: Morphine 2 mg/ml ISec IVP PRN (03:32)
--- NOTE | 2016-12-01 03:45 | CP.PCM.HP ---
<Junior Vogel - Last Filed: 12/01/16 04:41> History of Present Illness - History of Present Illness History of Present Illness: CC: Left sided back pain for 18 hours HPI: Patient is a 31 year old male with past medical history significnat for gallbladder stones, asthma and seasonal allergies who presents to [facility] [place] [facility] ED complaining of left sided back and flank pain for the past 12-18 hours. Patient reports waking up from bed yesterday and experiencing moderate to severe pain. Patient describes the pain as 10/10 on onset, stabbing, intermittent pain that is made worse by movement and better with rest. Patient denies any previous history of such pain. He denies any extraneous activity day leading up to episode, trauma or straining activities. Patient denies nausea, vomiting, fever , chills. Patient reports poor oral intake with fluids and food for the past day due to associated pain. Of note patient has reportedly lost over 130 lbs intentionally through dieting over the past 6 plus months. Patient denies chest pain, shortness of breath, change in bowel movements. PMH: as above PSH: none FMH: Mother with Chron's SH: - Tobacco: 0.5 PPD - Etoh: Denies - ID: Denies ALL: NKDA Meds: Benadryl, Albuterol PMD: Denies Present on Admission - Present on Admission Any Indicators Present on Admission: No History of DVT/PE: No History of Uncontrolled Diabetes: No Urinary Catheter: No Decubitus Ulcer Present: No Review of Systems - Review of Systems All systems: reviewed and no additional remarkable complaints except (otherwise what is mentioned in HPI) - Gastrointestinal Gastrointestinal: Abdominal Pain (minimal left sided). absent: Bloating, Change in Bowel Habits, Cramping, Diarrhea, Dysphagia, Early Satiety, Hematemesis - Musculoskeletal Musculoskeletal: Stiffness. absent: Muscle Weakness, Myalgias, Neck Pain, Radiating Pain into Limb, Tingling Additional comments: Mid to lower left sided back pain Past Patient History - Infectious Disease Hx of Infectious Diseases: None - Tetanus Immunizations Tetanus Immunization: Unknown - Past Medical History & Family History Past Medical History?: Yes - Past Social History Smoking Status: Light Smoker < 10 Cigarettes Daily Alcohol: None Drugs: Denies - CARDIAC Hx Cardiac Disorders: No - PULMONARY Hx Respiratory Disorders: Yes Hx Asthma: Yes - NEUROLOGICAL Hx Neurological Disorder: No - HEENT Hx HEENT Problems: No - RENAL Hx Chronic Kidney Disease: No - ENDOCRINE/METABOLIC Hx Endocrine Disorders: No - HEMATOLOGICAL/ONCOLOGICAL Hx Blood Disorders: No - INTEGUMENTARY Hx Dermatological Problems: No - MUSCULOSKELETAL/RHEUMATOLOGICAL Hx Musculoskeletal Disorders: No - GASTROINTESTINAL Hx Gastrointestinal Disorders: Yes Hx Gall Bladder Disease: Yes Other/Comment: GALLSTONES - GENITOURINARY/GYNECOLOGICAL Hx Genitourinary Disorders: No - PSYCHIATRIC Hx Psychophysiologic Disorder: No Hx Depression: No Hx Emotional Abuse: No Hx Physical Abuse: No Hx Substance Use: No - SURGICAL HISTORY Hx Surgeries: No - ANESTHESIA Hx Anesthesia: No Meds Allergies/Adverse Reactions: Allergies Allergy/AdvReac Type Severity Reaction Status Date / Time No Known Allergies Allergy Verified 11/30/16 16:51 Physical Exam - Constitutional Appears: Well - Head Exam Head Exam: ATRAUMATIC, NORMAL INSPECTION, NORMOCEPHALIC - Eye Exam Eye Exam: EOMI, PERRL - ENT Exam ENT Exam: Mucous Membranes Moist, Normal Exam - Neck Exam Neck exam: Positive for: Normal Inspection - Respiratory Exam Respiratory Exam: Wheezes (expiratory ), NORMAL BREATHING PATTERN - Cardiovascular Exam Cardiovascular Exam: REGULAR RHYTHM, +S1, +S2 - GI/Abdominal Exam GI & Abdominal Exam: Normal Bowel Sounds, Organomegaly, Soft, Tenderness (left sided lower quadrant and upper quadrant - minimal). absent: Guarding, Rebound, Rigid - Extremities Exam Extremities exam: Positive for: full ROM, normal inspection, pedal pulses present. Negative for: calf tenderness - Back Exam Back exam: paraspinal tenderness (Left sided T12-L2 with pain upon plapation ). absent: muscle spasm, rash noted, vertebral tenderness - Neurological Exam Neurological exam: Alert, CN II-XII Intact, Normal Gait, Oriented x3, Reflexes Normal - Psychiatric Exam Psychiatric exam: Normal Affect, Normal Mood - Skin Skin Exam: Dry, Intact, Normal Color, Warm Results - Vital Signs Recent Vital Signs: Last Vital Signs Temp 97.9 F 11/30/16 22:59 Pulse 54 L 12/01/16 03:18 Resp 18 12/01/16 03:18 BP 128/74 12/01/16 03:18 Pulse Ox 98 12/01/16 03:18 - Labs Result Diagrams: 11/30/16 17:30 11/30/16 17:30 Assessment & Plan (1) Left flank pain Status: Acute (2) Abdominal pain Status: Acute - Assessment and Plan (Free Text) Assessment: Patient is a 31 year old male with PMH sig for Asthma, gb stones, and seasonal allergies who presents with left sided flank/abdominal pain for the past [address] scan shows ascities and periportal fluid which warrant observation and further follow up. GI has been consulted and patient will be placed in observation for continued monitoring. Plan: 1. Left sided abdominal/flank pain - CT results as follows: CT w/out contrast: Hepatosplenomegaly, cholelithiasis, limited evaluation of bowel, questionable diverticulosis involving sigmoid colon, small amount of free fluid in right aspect of the pelvis which is abnormal in male patient CT w/ contrast: ascities with periportal fluid, hepatosplenomegaly, cholelithiasis, mottled material with air within the pelvis that may be withing bowel - Analgesic for pain control - GI consult, appreciate recs - IVF - Admit for observation 2. hx of asthma - stable, continue to monitor GI/DVT ppx - Protonix - SCDs Case discussed and reviewed with Dr. Beth - Date & Time Date: 12/01/16 Time: 03:52 <Leticia Beth - Last Filed: 12/01/16 05:07> Results - Vital Signs Recent Vital Signs: Last Vital Signs Temp 98.2 F 12/01/16 04:33 Pulse 60 12/01/16 04:33 Resp 18 12/01/16 04:33 BP 134/70 12/01/16 04:33 Pulse Ox 98 12/01/16 03:18 - Labs Result Diagrams: 11/30/16 17:30 11/30/16 17:30 Attending/Attestation - Attestation I have personally seen and examined this patient.: Yes I have fully participated in the care of the patient.: Yes I have reviewed all pertinent clinical information: Yes Notes (Text): 12/01/16 05:04 Patient was seen when he was in Room # 11 in the ER. Agree with history , physical examination, assessment and plan.
[2016-12-01 06:34] LABS: BASO # 0.05 K/mm3 (0.0-2.0); BASO % 0.8 % (0.0-3.0); EOS # 0.6 (0.0-0.7); EOS % 9.7 % (1.5-5.0); GRAN # 2.77 (1.4-6.5); GRAN % 43.1 % (50.0-68.0); HEMATOCRIT 36.9 % (42.0-52.0); LYMPH # 2.6 (1.2-3.4); LYMPH % 40.5 % (22.0-35.0); MEAN CELL VOLUME 86.4 fl (80.0-105.0); MEAN CORPUSCULAR HEMOGLOBIN 28.8 pg (25.0-35.0); MEAN CORPUSCULAR HGB CONC 33.3 g/dl (31.0-37.0); MEAN PLATELET VOLUME 9.9 fl (7.0-11.0); MONO # 0.4 (0.1-0.6); MONO % 5.9 % (1.0-6.0); RED CELL DISTRIBUTION WIDTH 13.7 % (11.5-14.5); WHITE BLOOD COUNT 6.4 10^3/ul (4.5-11.0)
[2016-12-01 06:40] LABS: INR 1.04 (0.93-1.08)
[2016-12-01 06:50] LABS: ALB/GLOB RATIO 1.5 (1.1-1.8); ALKALINE PHOSPHATASE 51 U/L (38-133); ALT/SGPT 21 U/L (7-56); AST/SGOT 22 U/L (15-59); BILIRUBIN,TOTAL 0.6 mg/dL (0.2-1.3); BLOOD UREA NITROGEN 9 mg/dL (7-21); CALCIUM 8.7 mg/dL (8.4-10.5); CARBON DIOXIDE 28 mmol/L (21-33); CHLORIDE 104 mmol/L (98-107); GFR AFRICAN-AMERICAN > 60; GLUCOSE,RANDOM 91 mg/dL (70-110); POTASSIUM 3.5 mmol/L (3.6-5.0); SODIUM 139 mmol/L (132-148); TOTAL PROTEIN 6.1 g/dL (5.8-8.3)
[2016-12-01] MEDS ORDERED: Potassium Chloride 40 mEq/30 ml LIQ UD PO ONE (07:06)
[2016-12-01 08:32] VITALS: BP 129/79; PULSE 58; RESP 20; TEMP 97.7; O2SAT 97
--- NOTE | 2016-12-01 09:22 | RAD ---
HISTORY: medical clearance COMPARISON: Comparison made with prior study 08/19/2016 FINDINGS: LUNGS: Interstitial markings are slightly increased and coarsened with a few scattered peribronchial cuffing changes. Changes could represent sequela of reactive/inflammatory airway disease or viral illness. Vague nodular density seen in the right upper lobe could represent vessel on end artifact or possibly small granulomas PLEURA: No significant pleural effusion identified, no pneumothorax apparent. CARDIOVASCULAR: Normal. OSSEOUS STRUCTURES: No significant abnormalities. VISUALIZED UPPER ABDOMEN: Normal. OTHER FINDINGS: None. IMPRESSION: Interstitial markings are slightly increased and coarsened with a few scattered peribronchial cuffing changes. Changes could represent sequela of reactive/inflammatory airway disease or viral illness.
--- NOTE | 2016-12-01 10:46 | CP.PCM.DIS ---
<Madiha Nelson - Last Filed: 12/01/16 12:50> Provider - Provider Date of Admission: 12/01/16 01:01 Attending physician: Trinh Meredith MD Primary care physician: NO PRIMARY CARE PROVIDER Consults: GABY Saldivar Time Spent in preparation of Discharge (in minutes): 45 Hospital Course - Lab Results Lab Results: Most Recent Lab Values WBC 6.4 10^3/ul (4.5-11.0) 12/01/16 06:00 RBC 4.27 10^6/uL (3.5-6.1) 12/01/16 06:00 Hgb 12.3 g/dL (14.0-18.0) L D 12/01/16 06:00 Hct 36.9 % (42.0-52.0) L 12/01/16 06:00 MCV 86.4 fl (80.0-105.0) 12/01/16 06:00 MCH 28.8 pg (25.0-35.0) 12/01/16 06:00 MCHC 33.3 g/dl (31.0-37.0) 12/01/16 06:00 RDW 13.7 % (11.5-14.5) 12/01/16 06:00 Plt Count 159 10^3/uL (120.0-450.0) 12/01/16 06:00 MPV 9.9 fl (7.0-11.0) 12/01/16 06:00 Gran % 43.1 % (50.0-68.0) L 12/01/16 06:00 Lymph % (Auto) 40.5 % (22.0-35.0) H 12/01/16 06:00 [place] % (Auto) 5.9 % (1.0-6.0) 12/01/16 06:00 Eos % (Auto) 9.7 % (1.5-5.0) H 12/01/16 06:00 Baso % (Auto) 0.8 % (0.0-3.0) 12/01/16 06:00 Gran # 2.77 (1.4-6.5) 12/01/16 06:00 Lymph # 2.6 (1.2-3.4) 12/01/16 06:00 Wall[place] # 0.4 (0.1-0.6) 12/01/16 06:00 Eos # 0.6 (0.0-0.7) 12/01/16 06:00 Baso # 0.05 K/mm3 (0.0-2.0) 12/01/16 06:00 PT 11.2 Seconds (9.9-11.8) 12/01/16 06:00 INR 1.04 (0.93-1.08) 12/01/16 06:00 Sodium 139 mmol/L (132-148) 12/01/16 06:00 Potassium 3.5 mmol/L (3.6-5.0) L 12/01/16 06:00 Chloride 104 mmol/L (98-107) 12/01/16 06:00 Carbon Dioxide 28 mmol/L (21-33) 12/01/16 06:00 Anion Gap 11 (10-20) 12/01/16 06:00 BUN 9 mg/dL (7-21) 12/01/16 06:00 Creatinine 0.6 mg/dL (0.5-1.4) 12/01/16 06:00 Est GFR ( Amer) > 60 12/01/16 06:00 Est GFR (Non-Af Amer) > 60 12/01/16 06:00 Random Glucose 91 mg/dL (70-110) 12/01/16 06:00 Calcium 8.7 mg/dL (8.4-10.5) 12/01/16 06:00 Total Bilirubin 0.6 mg/dL (0.2-1.3) 12/01/16 06:00 AST 22 U/L (15-59) 12/01/16 06:00 ALT 21 U/L (7-56) 12/01/16 06:00 Alkaline Phosphatase 51 U/L (38-133) 12/01/16 06:00 Total Protein 6.1 g/dL (5.8-8.3) 12/01/16 06:00 Albumin 3.7 g/dL (3.0-4.8) 12/01/16 06:00 Globulin 2.4 gm/dL 12/01/16 06:00 Albumin/Globulin Ratio 1.5 (1.1-1.8) 12/01/16 06:00 Lipase 132 U/L (23-300) 11/30/16 17:30 Urine Color Yellow (YELLOW) 11/30/16 19:00 Urine Appearance Clear (CLEAR) 11/30/16 19:00 Urine pH 6.0 (4.7-8.0) 11/30/16 19:00 Ur Specific [place] >= 1.030 (1.005-1.035) 11/30/16 19:00 Urine Protein Trace mg/dL (<30 mg/dL) H 11/30/16 19:00 Urine Glucose (UA) Negative mg/dL (NEGATIVE) 11/30/16 19:00 Urine Ketones Negative mg/dL (NEGATIVE) 11/30/16 19:00 Urine Blood Negative (NEGATIVE) 11/30/16 19:00 Urine Nitrate Negative (NEGATIVE) 11/30/16 19:00 Urine Bilirubin Negative (NEGATIVE) 11/30/16 19:00 Urine Urobilinogen 1.0 E.U./dL (<1 E.U./dL) H 11/30/16 19:00 Ur Leukocyte Esterase Negative Lilly/uL (NEGATIVE) 11/30/16 19:00 Urine RBC TEST NOT PERFORMED 11/30/16 19:00 Urine WBC 5 - 10 /hpf (0-6) 11/30/16 19:00 Ur Epithelial Cells 3 - 4 /hpf (0-5) 11/30/16 19:00 Amorphous Sediment Trace 11/30/16 19:00 - Hospital Course Hospital Course: Upon Admission 31 year old male PMHx cholelithiasis, asthma and seasonal allergies presented to [facility] [place] ED complaining of left sided back and flank pain for the past 12-18 hours. Patient reports waking up from bed yesterday and experiencing moderate to severe pain that was a 10/10 at its onset and described as stabbing, intermittent- worsened with movement and alleviated with rest. Patient reported carrying and lifting heavy boxes this past week and associated the pain with possibly a "muscle pull." On ROS patient denied fever, chills, chest pain, SOB, abd pain, bowel/bladder complaints, pain/swelling in his legs bilaterally. Patient received 1 dose of Rocephin in ED and was admitted for observation to med/surg. Initial CT Abd/pelvis showed "hepatosplenomegaly, cholelithiasis, no definite evidence of obstructing nephrolithiasis. The urinary bladder incompletely distended which may in part account for thick-walled appearance. Muscular hypertrophy may contribute; rule out cystitis. Evaluation of the bowel is quite limited. The appendix is not seen with certainty. Questionable diverticulosis involving the sigmoid colon. Evaluation for acute diverticulitis is limited predominately due to a paucity of intraperitoneal/retroperitoneal fat. There appears to be a small amount of free fluid in the right aspect of the pelvis abnormal in a male patient." Repeat CT Abdomen/pelvis with contrast showed "mottled material with air within the pelvis that may be within bowel. There is ascites with periportal fluid which is abnormal and indicates an underlying acute abnormality. Hepatosplenomegaly. Cholelithiasis." Upon examination patient had clinically improved and reported the pain regimen was helping his flank pain. He denied any urinary complaints and associated his pain with lifting boxes. On day of discharge patient was deemed medically stable for discharge. 1) Left flank pain: likely musculoskeletal 2) Hx of asthma: continue home meds Upon Discharge Patient stable for discharge home as per hospitalist team Patient to take medications as prescribed: -Motrin 400mg po q6h PRN pain Disp#30 -Pepcid 40mg po daily Disp#30 Patient counseled against lifting heavy objects. Patient to follow up with PMD within 7 days. If symptoms persist or worsen patient to visit ER immediately. Instructions discussed in detail with patient who understands and agrees. Discharge Exam - Head Exam Head Exam: ATRAUMATIC, NORMAL INSPECTION, NORMOCEPHALIC - Eye Exam Eye Exam: EOMI, Normal appearance, PERRL. absent: Conjunctival injection, Scleral icterus - ENT Exam ENT Exam: Mucous Membranes Moist - Neck Exam Neck exam: Full Rom - Respiratory Exam Respiratory Exam: Clear to PA & Lateral, NORMAL BREATHING PATTERN. absent: Accessory Muscle Use, Rales, Rhonchi, Wheezes, Respiratory Distress - Cardiovascular Exam Cardiovascular Exam: REGULAR RHYTHM, RRR, +S1, +S2. absent: Systolic Murmur - GI/Abdominal Exam GI & Abdominal Exam: Normal Bowel Sounds, Soft. absent: Tenderness - Extremities Exam Extremities exam: normal capillary refill, normal inspection, pedal pulses present - Back Exam Back exam: paraspinal tenderness (L sided) - Neurological Exam Neurological exam: Alert, Normal Gait, Oriented x3 - Psychiatric Exam Psychiatric exam: Normal Affect, Normal Mood - Skin Skin Exam: Dry, Intact, Normal Color, Warm Discharge Plan - Discharge Medications Prescriptions: Famotidine [Pepcid] 40 mg PO DAILY #30 tab Ibuprofen [Motrin] 400 mg PO Q6H PRN #30 tab PRN Reason: Pain, Moderate (4-7) - Follow Up Plan Condition: STABLE Disposition: HOME/ ROUTINE Instructions: Gallstones (DC), Acute Abdominal Pain (DC), Acute Abdominal Pain (GEN), Fall Prevention (DC) Additional Instructions: Patient stable for discharge home as per hospitalist team Patient to take medications as prescribed: -Motrin 400mg po q6h PRN pain Disp#30 -Pepcid 40mg po daily Disp#30 Patient counseled against lifting heavy objects. Patient to follow up with PMD within 7 days. If symptoms persist or worsen patient to visit ER immediately. Instructions discussed in detail with patient who understands and agrees. Referrals: PCP,TAYLOR [Primary Care Provider] - Jak Saldivar DO [Staff Provider] - <Trinh Meredith - Last Filed: 12/01/16 15:05> Provider - Provider Date of Admission: 12/01/16 01:01 Attending physician: Trinh Meredith MD Primary care physician: TAYLOR PRIMARY CARE PROVIDER Hospital Course - Lab Results Lab Results: Most Recent Lab Values WBC 6.4 10^3/ul (4.5-11.0) 12/01/16 06:00 RBC 4.27 10^6/uL (3.5-6.1) 12/01/16 06:00 Hgb 12.3 g/dL (14.0-18.0) L D 12/01/16 06:00 Hct 36.9 % (42.0-52.0) L 12/01/16 06:00 MCV 86.4 fl (80.0-105.0) 12/01/16 06:00 MCH 28.8 pg (25.0-35.0) 12/01/16 06:00 MCHC 33.3 g/dl (31.0-37.0) 12/01/16 06:00 RDW 13.7 % (11.5-14.5) 12/01/16 06:00 Plt Count 159 10^3/uL (120.0-450.0) 12/01/16 06:00 MPV 9.9 fl (7.0-11.0) 12/01/16 06:00 Gran % 43.1 % (50.0-68.0) L 12/01/16 06:00 Lymph % (Auto) 40.5 % (22.0-35.0) H 12/01/16 06:00 Waller % (Auto) 5.9 % (1.0-6.0) 12/01/16 06:00 Eos % (Auto) 9.7 % (1.5-5.0) H 12/01/16 06:00 Baso % (Auto) 0.8 % (0.0-3.0) 12/01/16 06:00 Gran # 2.77 (1.4-6.5) 12/01/16 06:00 Lymph # 2.6 (1.2-3.4) 12/01/16 06:00 Waller # 0.4 (0.1-0.6) 12/01/16 06:00 Eos # 0.6 (0.0-0.7) 12/01/16 06:00 Baso # 0.05 K/mm3 (0.0-2.0) 12/01/16 06:00 PT 11.2 Seconds (9.9-11.8) 12/01/16 06:00 INR 1.04 (0.93-1.08) 12/01/16 06:00 Sodium 139 mmol/L (132-148) 12/01/16 06:00 Potassium 3.5 mmol/L (3.6-5.0) L 12/01/16 06:00 Chloride 104 mmol/L (98-107) 12/01/16 06:00 Carbon Dioxide 28 mmol/L (21-33) 12/01/16 06:00 Anion Gap 11 (10-20) 12/01/16 06:00 BUN 9 mg/dL (7-21) 12/01/16 06:00 Creatinine 0.6 mg/dL (0.5-1.4) 12/01/16 06:00 Est GFR ( Amer) > 60 12/01/16 06:00 Est GFR (Non-Af Amer) > 60 12/01/16 06:00 Random Glucose 91 mg/dL (70-110) 12/01/16 06:00 Calcium 8.7 mg/dL (8.4-10.5) 12/01/16 06:00 Total Bilirubin 0.6 mg/dL (0.2-1.3) 12/01/16 06:00 AST 22 U/L (15-59) 12/01/16 06:00 ALT 21 U/L (7-56) 12/01/16 06:00 Alkaline Phosphatase 51 U/L (38-133) 12/01/16 06:00 Total Protein 6.1 g/dL (5.8-8.3) 12/01/16 06:00 Albumin 3.7 g/dL (3.0-4.8) 12/01/16 06:00 Globulin 2.4 gm/dL 12/01/16 06:00 Albumin/Globulin Ratio 1.5 (1.1-1.8) 12/01/16 06:00 Lipase 132 U/L (23-300) 11/30/16 17:30 Urine Color Yellow (YELLOW) 11/30/16 19:00 Urine Appearance Clear (CLEAR) 11/30/16 19:00 Urine pH 6.0 (4.7-8.0) 11/30/16 19:00 Ur Specific [place] >= 1.030 (1.005-1.035) 11/30/16 19:00 Urine Protein Trace mg/dL (<30 mg/dL) H 11/30/16 19:00 Urine Glucose (UA) Negative mg/dL (NEGATIVE) 11/30/16 19:00 Urine Ketones Negative mg/dL (NEGATIVE) 11/30/16 19:00 Urine Blood Negative (NEGATIVE) 11/30/16 19:00 Urine Nitrate Negative (NEGATIVE) 11/30/16 19:00 Urine Bilirubin Negative (NEGATIVE) 11/30/16 19:00 Urine Urobilinogen 1.0 E.U./dL (<1 E.U./dL) H 11/30/16 19:00 Ur Leukocyte Esterase Negative Lilly/uL (NEGATIVE) 11/30/16 19:00 Urine RBC TEST NOT PERFORMED 11/30/16 19:00 Urine WBC 5 - 10 /hpf (0-6) 11/30/16 19:00 Ur Epithelial Cells 3 - 4 /hpf (0-5) 11/30/16 19:00 Amorphous Sediment Trace 11/30/16 19:00 Attending/Attestation - Attestation I have personally seen and examined this patient.: Yes I have fully participated in the care of the patient.: Yes I have reviewed all pertinent clinical information, including history, physical exam and plan: Yes Notes (Text): 12/01/16 14:57 31 year old male with no signficant past medical history who presented with complaint of left sided back/flank pain since yesterday. He states he was lifting heavy boxes few days prior and might have "pulled a muscle". He denies any urinary complaints. CT abd/pelvis showed no definite evidence of obstructing nephrolithiasis or hydronephrosis and showed small ascites. UA was negative for infection. Labs were unremarkable except potassium of 3.5 which was repleted. This morning his symptoms improved. He was seen by GI. Agreed with trial of NSAIDs for pain. Patient is discharged home to follow up with his pmd. Avoid heavy lifting or strenous exercise. Trinh Meredith MD Hospitalist.
--- NOTE | 2016-12-01 16:26 | CON ---
DATE: 12/01/2016 HISTORY OF PRESENT ILLNESS: I examined Mr. Del Rosario this morning. He is a 31-year-old male with complaints of left flank pain. Patient explicitly denied abdominal pain. He has no nausea or vomiting. He indicated that he probably experienced onset of left flank pain yesterday upon waking. He did not have any blood in the urine. Also denied any problems with his bowel movements. He denied any GI history per se. PHYSICAL EXAMINATION VITAL SIGNS: I reviewed this patient's vital signs. HEENT: Noncontributory. LUNGS: Clear to auscultation. HEART: Regular rhythm. ABDOMEN: Soft, nontender in all quadrants. No tenderness elicited. MUSCULOSKELETAL: On evaluation of the patient's left flank, patient has point tenderness in the area near and about the left kidney. LABORATORY DATA: I reviewed this patient's CTs as well as the laboratory data. Laboratory data is significant for H and H of 14 and 41. Noncontributory chemistry. I reviewed the urinalysis as well. ASSESSMENT: This is a 31-year-old male with complaints of left flank pain. Note, I reviewed both of the patient's CTs. Patient is experiencing point tenderness over the area of the left kidney. There is nothing on the CT scans to indicate hydronephrosis or an obstructed urinary tract. Note, that there is evidence of stool in the colon; however, clinically there is no evidence of a fecal impaction associated with severe abdominal pain. Note that the patient showed me a bottle of magnesium citrate at the bedside, which he felt he did not need for his bowel movements. PLAN: Etiology for the point tenderness of the kidney is uncertain. Patient will be evaluated by house staff and doctor visit later on this morning. Does not seem to be too much for me to offer in this particular case. Jak Saldivar DO, PhD AFIA
== END 2016-12-01 12:55 | disposition home or self-care (01) ==
LOC: ED 16:33 → ERH 12-01 01:01 → 5RNO 12-01 03:32
PROVIDERS: ADMIT Internal Medicine; ATTEND Internal Medicine
DX: M54.9 Dorsalgia, unspecified (principal); K80.20 Calculus of gallbladder without cholecystitis without obstruction; R16.2 Hepatomegaly with splenomegaly, not elsewhere classified; R18.8 Other ascites; X50.0XXA Overexertion from strenuous movement or load, initial encounter; J45.909 Unspecified asthma, uncomplicated
CPT/HCPCS: 36415; 71010; 74176; 74177; 80053; 81001; 83690; 85025; 85610; 87086; 96361; 96365; 96375; 99285; G0378; J0696; J1885; J2270; J3360; J7040; Q9966; Q9967